=== PATIENT | female | born 1970 | race Caucasian/White ===

== ENCOUNTER 2017-04-05 08:24 | Emergency (ER) | payer OTHER ==
[2017-04-05 08:41] VITALS: BP 119/79; PULSE 75; RESP 16; TEMP 98.4; O2SAT 97
--- NOTE | 2017-04-05 09:01 | EDPHY ---
H & P Stated Complaint: RASH ON BOTH INNER THIGHS, AND LEFT BREAST, ITCHES AND WARM Time Seen by Provider: 04/05/17 09:00 - Personal History LMP (Females 10-55): 15-21 Days Ago Current Tetanus Diphtheria and Acellular Pertussis (TDAP): Unsure - Medical/Surgical History Hx Asthma: No Hx Chronic Respiratory Disease: No Hx Diabetes: No Hx Cardiac Disease: No Hx Renal Disease: No Hx Cirrhosis: No Hx Alcoholism: No Hx HIV/AIDS: No Hx Splenectomy or Spleen Trauma: No Other PMH: DENIES - Social History Smoking Status: Never smoked Constitutional: Initial Vital Signs Temperature (C) 36.9 C 04/05/17 08:36 Heart Rate 75 04/05/17 08:36 Respiratory Rate 16 04/05/17 08:36 Blood Pressure 119/79 04/05/17 08:36 O2 Sat (%) 97 04/05/17 08:36 O2 Delivery Mode Room Air Allergies/Adverse Reactions: No Known Allergies Allergy (Unverified 04/05/17 08:41) Home Medications: Medication Instructions Recorded BENADRYL 04/05/17 CEPHALEXIN 04/05/17 Famotidine [Pepcid 20 MG (OTC)] 40 mg PO DAILY #10 tab 04/05/17 predniSONE 40 mg PO DAILY #10 tab 04/05/17 Medical Decision Making ED Course/Re-evaluation: CHIEF COMPLAINT: Rash HISTORY OF PRESENT ILLNESS: The patient is a 46 y/o female arriving with her complaining of a worsening pruritic rash along her inner thighs for the last few days after using new topical body cream. She does hike regularly and may have been exposed to poison clementina. She sent pictures to her PCP, who was concerned the patient had MRSA and placed the patient on Keflex. She's had no improvement since starting them. The rash initially appeared on her groin and both inner thighs and has since spread to her abdomen and chest. She denies any respiratory symptoms, pustules. She has used Benadryl and topical cortisone cream to try to treat her symptoms. REVIEW OF SYSTEMS: A 10 point review of systems was performed and is negative with the exception of the elements mentioned in the history of present illness. PHYSICAL EXAM: HR, BP, O2 Sat, RR. Temp noted General Appearance: Alert, well hydrated, appropriate, and non-toxic appearing. Head: Atraumatic without scalp tenderness or obvious injury Eyes: Pupils equal, round, reactive to light and accommodation, EOMI, no trauma , no injection. Nose: Atraumatic, no rhinorrhea, clear. Throat: There is no erythema or exudates, no lesions, normal tonsils, mucus membranes moist. Neck: Supple, nontender, no lymphadenopathy. Respiratory: No retractions, no distress, no wheezes, and no accessory muscle use. Lungs are clear to auscultation bilaterally. Cardiovascular: Regular rate and rhythm, no murmurs, rubs, or gallops. Good capillary refill all extremities. Gastrointestinal: Abdomen is soft, nontender, non-distended, no masses, no rebound, no guarding, no peritoneal signs. Musculoskeletal: Normal active ROM of all extremities, atraumatic. Neurological: Alert, appropriate, and interactive. Nonfocal neuro exam. Skin: Urticaria to both upper legs, abdomen, chest, and neck with some linear pattern noted on legs. Good turgor, no nodules on palpation. Past medical history: Denies Past surgical history: Denies Family history: noncontributory Social history: at bedside. PCP: Dr. Aruna Ceballos DIFFERENTIAL DIAGNOSIS: The differential diagnosis included but was not limited to contact dermatitis, poison clementina exposure, angioedema, anaphylaxis, anaphylactoid reaction, urticarial reaction, and other infectious causes for skin rash. MEDICAL DECISION MAKING: This is a healthy 46 y/o female who presents with a few-day history of worsening pruritic rash spreading from her groin and thighs to her abdomen and neck. Her symptoms began shortly after using new body creams and urinating in the [place] while hiking where she may have been exposed to poison clementina. No evidence of respiratory involvement or infection. Her symptoms are consistent with a contact dermatitis. Plan to treat with PO prednisone, PO Pepcid, and standard allergic reaction care instructions. Departure - Departure Disposition: Home, Routine, Self-Care Clinical Impression: Allergic reaction Qualifiers: Encounter type: initial encounter Qualified Code(s): T78.40XA - Allergy, unspecified, initial encounter Condition: Good Instructions: Contact Dermatitis (ED), Poison [place] (ED), General Allergic Reaction (ED) Additional Instructions: 1. Take prednisone and Pepcid as prescribed for the next 5 days. 2. Use Benadryl as directed on the packaging as needed for itching. 3. Discontinue all new topical agents you have been using. 4. Follow up with your primary care provider for unimproved symptoms over the next week. Sometimes rashes caused by poison clementina will need more than one round of prednisone. 5. Return to the ED if you develop any respiratory symptoms. Referrals: Aruna Ceballos MD [Primary Care Provider] - As per Instructions Prescriptions: Famotidine [Pepcid 20 MG (OTC)] 40 mg PO DAILY #10 tab predniSONE 40 mg PO DAILY #10 tab Report Scribed for: He Menon Report Scribed by: Cindy Varghese Date of Report: 04/05/17 Time of Report: 09:07
== END 2017-04-05 09:22 | disposition home or self-care (01) ==
DX: T78.40XA Allergy, unspecified, initial encounter (principal)